=== PATIENT | female | born 1955 | race Caucasian/White ===

== ENCOUNTER 2017-08-09 18:17 | Emergency (ER) | payer OTHER ==
[~2017-08-09] VITALS: Ht 157.5 cm; Wt 68.0 kg
[2017-08-09 18:39] VITALS: BP 154/55
== END 2017-08-09 19:00 | disposition home or self-care (01) ==
LOC: ER 18:18
DX: J32.9 Chronic sinusitis, unspecified (principal); R04.0 Epistaxis; E03.9 Hypothyroidism, unspecified; F10.10 Alcohol abuse, uncomplicated
CPT/HCPCS: 99281; A4606; Z7610; Z7502